=== PATIENT | male | born 1975 | race Caucasian/White ===

== ENCOUNTER 2018-12-29 21:17 | Inpatient (IN) | payer OTHER ==
--- NOTE | 2018-12-29 21:23 | PDOC ---
Rapid Medical Evaluation Time Seen by Provider: 12/29/18 21:20 Medical Evaluation: Allergies Allergy/AdvReac Type Severity Reaction Status Date / Time No Known Allergies Allergy Verified 01/04/14 17:49 12/29/18 21:20 Presents to the ER for 1 day of abdominal pain. He notes the pain is mostly in the RLQ. Has not taken any medicine for the pain Exam: TTP of the RLQ Orders: Labs, IV Pt to proceed to the ER for further evaluation Discharge Disposition - Diagnosis Abdominal pain - Referrals - Patient Instructions - Post Discharge Activity
[2018-12-29 22:04] LABS: BASO % 0.3 % (0-2.0); EOS % 2.3 % (0-4.5); HEMATOCRIT 44.4 % (35.4-49); HEMOGLOBIN 14.8 GM/dL (11.7-16.9); LYMPH % 19.5 % (8-40); MCH 28.5 pg (25.7-33.7); MCHC 33.3 g/dl (32.0-35.9); MEAN CELL VOLUME 85.5 fl (80-96); MONO % 6.7 % (3.8-10.2); NEUT % 71.2 % (42.8-82.8); PLATELET COUNT 186 K/MM3 (134-434); RBC 5.19 M/mm3 (4.00-5.60); WHITE BLOOD COUNT 7.1 K/mm3 (4.0-10.0)
[2018-12-29 22:08] LABS: URINE APPEARANCE CLEAR; URINE BILIRUBIN NEGATIVE (NEGATIVE); URINE COLOR YELLOW; URINE GLUCOSE (UA) NEGATIVE (NEGATIVE); URINE KETONE NEGATIVE (NEGATIVE); URINE LEUK ESTERASE NEGATIVE (NEGATIVE); URINE NITRITE NEGATIVE (NEGATIVE); URINE PROTEIN NEGATIVE (NEGATIVE); URINE UROBILINOGEN 0.2 mg/dL (0.2-1.0)
[2018-12-29 22:19] LABS: INR 1.02 (0.83-1.09)
[2018-12-29 22:31] LABS: ALBUMIN 4.4 g/dl (3.4-5.0); BILIRUBIN,TOTAL 0.3 mg/dL (0.2-1); BLOOD UREA NITROGEN 12.2 mg/dL (7-18); CALCIUM 9.3 mg/dL (8.5-10.1); CREATININE 1.2 mg/dL (0.55-1.3); POTASSIUM 4.2 mmol/L (3.5-5.1); TOT PROT 7.7 g/dl (6.4-8.2)
[2018-12-29] MEDS ORDERED: ACETAMINOPHEN 1000 MG/100 ML VIAL (NON FORMULARY) IVPB ONE (23:21)
--- NOTE | 2018-12-29 23:22 | PDOC ---
History of Present Illness - General Chief Complaint: Pain Stated Complaint: ABD PAIN Time Seen by Provider: 12/29/18 21:20 - History of Present Illness Initial Comments: 12/30/18 00:56 CHIEF COMPLAINT: RLQ pain HISTORY OF PRESENT ILLNESS: 43 yo M with no PMH presents to ED with pain with sudden onset RLQ since 6 pm. Patient states he was driving when the pain began. Patient denies any nausea, vomiting, diarrhea. PAST MEDICAL HISTORY: Denies past medical history FAMILY HISTORY: Denies SOCIAL HISTORY: Denies tobacco, alcohol, illicit drug use. SURGICAL HISTORY: Denies ALLERGIES: No known drug allergies REVIEW OF SYSTEMS General/Constitutional: Denies fever or chills. Denies weakness, weight change. HEENT: Denies change in vision. Denies ear pain or discharge. Denies sore throat. Cardiovascular: Denies chest pain or shortness of breath. Respiratory: Denies cough, wheezing, or hemoptysis. Gastrointestinal: RLQ tenderness since this evening. Denies nausea, vomiting, diarrhea or constipation. Denies rectal bleeding. Genitourinary: Denies dysuria, frequency, or change in urination. Musculoskeletal: Denies joint or muscle swelling or pain. Denies neck or back pain. Skin and breasts: Denies rash or easy bruising. Neurologic: Denies headache, vertigo, loss of consciousness, or loss of sensation. Psychiatric: Denies depression or anxiety. Endocrine: Denies increased thirst. Denies abnormal weight change. Hematologic/Lymphatic: Denies anemia, easy bleeding, or history of blood clots. Allergic/Immunologic: Denies hives or skin allergy. Denies latex allergy. PHYSICAL EXAM General Appearance: Well-appearing, appropriately dressed. No apparent distress , no intoxication. HEENT: EOMI, PERRLA, normal ENT inspection, normal voice, TMs normal, pharynx normal. No conjunctival pallor. No photophobia, scleral icterus. Neck: Supple. Trachea midline. No tenderness, rigidity, carotid bruit, stridor , lymphadenopathy, or thyromegaly. Respiratory/Chest: Lungs CTAB. No shortness of breath, chest tenderness, respiratory distress, accessory muscle use. No crackles, rales, rhonchi, stridor , wheezing, dullness Cardiovascular: RRR. S1, S2. No JVD, murmur, bradycardia, tachycardia. Vascular Pulses: Dorsalis-Pedis (R): 2+, Dorsalis-Pedis (L): 2+ Gastrointestinal/Abdominal: Marked tenderness to RLQ. Normal bowel sounds. Abdomen soft, non-distended. No tenderness or rebound tenderness. No organomegaly, pulsatile mass, guarding, hernia, hepatomegaly, splenomegaly. Lymphatic: No adenopathy, tenderness. Musculoskeletal/Extremities: Normal inspection. FROM of all extremities, normal capillary refill. Pelvis Stable. No CVA tenderness. No tenderness to extremities, pedal edema, swelling, erythema or deformity. Integumentary: Appropriate color, dry, warm. 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 Fully oriented, alert. Appropriate mood/affect. Motor strength 5/5. No appreciable EOM palsy, facial droop or sensory deficit. 12/30/18 00:57 12/30/18 01:38 Past History - Past Medical History Allergies/Adverse Reactions: Allergies Allergy/AdvReac Type Severity Reaction Status Date / Time No Known Allergies Allergy Verified 01/04/14 17:49 Home Medications: Ambulatory Orders NK [No Known Home Medication] 01/04/14 COPD: No - Suicide/Smoking/Psychosocial Hx Smoking History: Never smoked *Physical Exam - Vital Signs Last Vital Signs Temp Pulse Resp BP Pulse Ox 99.2 F 76 18 113/83 99 12/29/18 21:21 12/29/18 21:21 12/29/18 21:21 12/29/18 21:21 12/29/18 21:21 ED Treatment Course - LABORATORY CBC & Chemistry Diagram: 12/29/18 21:48 12/29/18 21:48 - ADDITIONAL ORDERS Additional order review: Laboratory Results 12/29/18 12/29/18 12/29/18 21:48 21:48 21:48 PT with INR 12.00 INR 1.02 Sodium 139 Potassium 4.2 Chloride 103 Carbon Dioxide 32 Anion Gap 4 L BUN 12.2 Creatinine 1.2 Est GFR (CKD-EPI)AfAm 86.53 Est GFR (CKD-EPI)NonAf 74.66 Random Glucose 97 Calcium 9.3 Total Bilirubin 0.3 AST 21 ALT 26 Alkaline Phosphatase 65 Total Protein 7.7 Albumin 4.4 Urine Color Yellow Urine Appearance Clear Urine pH 5.0 Ur Specific [place] 1.014 Urine Protein Negative Urine Glucose (UA) Negative Urine Ketones Negative Urine Blood Negative Urine Nitrite Negative Urine Bilirubin Negative Urine Urobilinogen 0.2 Ur Leukocyte Esterase Negative 12/29/18 21:48 RBC 5.19 MCV 85.5 MCHC 33.3 RDW 13.0 MPV 9.0 Neutrophils % 71.2 Lymphocytes % 19.5 Monocytes % 6.7 Eosinophils % 2.3 Basophils % 0.3 Medical Decision Making - Medical Decision Making 12/30/18 01:22 43 yo M presents to ED with pain with sudden onset RLQ since 6 pm -labs done in triage, unremarkable Patient with marked RLQ tenderness with warmth to abdomen, suspicious for appy. CTAP with contrast. Patient +for acute appy. 12/30/18 01:38 Discussed case with on-call surgeon MD Sotelo, will admit to hospitalist for surgical services tomorrow per Dr. Sotelo. *DC/Admit/Observation/Transfer Diagnosis at time of Disposition: Appendicitis with perforation - Discharge Dispostion Decision to Admit order: Yes - Referrals - Patient Instructions - Post Discharge Activity
[2018-12-30] MEDS ORDERED: ACETAMINOPHEN INJECTION 100 ML IVPB ONE (01:08)
[2018-12-30] MEDS ORDERED: PIPERACILLIN/TAZOB 3.375 GM 3.375 GM in DEXTROSE 5%-WATER - 50 ML IVPB ONE ×2 (01:23→09:00)
--- NOTE | 2018-12-30 02:24 | PN ---
Teaching Attending Note Name of Resident: Flavio Baeza ATTENDING PHYSICIAN STATEMENT I saw and evaluated the patient. I reviewed the resident's note and discussed the case with the resident. I agree with the resident's findings and plan as documented. SUBJECTIVE: 43 yo M with bronchiectasis, pulm nodules presents with sudden onset RLQ since 6 pm. Patient states he was driving when the pain began. Patient denies any nausea, vomiting, diarrhea, or fevers. OBJECTIVE: Last Vital Signs Temp Pulse Resp BP Pulse Ox 99.2 F 76 18 113/83 99 12/29/18 21:21 12/29/18 21:21 12/29/18 21:21 12/29/18 21:21 12/29/18 21:21 gen-nad, heent- at, nc neck supple cv-s1+s2+rrr chest clear abd-RLQ pain ext no pedal edema Abnormal Lab Results 12/29/18 21:48 Anion Gap [address] abd/pelvis [facility] report -acute appendicitis, periappendiceal infection suspicious for perforation, constipation, diverticulosis, right lower lobe bronchectasis, right lower lobe irregular 8mm lung nodule, right lower lobe 4mm nodule, left lower lobe 5mm nodule ASSESSMENT AND PLAN: #acute appendicitis -med/surg -ekg -type/screen -pt/ptt -surgery consult -pain control - iv morphine -npo #Chest CT abnormalities - nodules as described above, bronchiectasis. No Hx of smoking, TB, fungal exposure. From DR og. -would f/u official CT scan reports -quantiferon -histo urine ag -crypo serum ag -coccidiodes ag -pulm eval for possible bronchoscopy -chest CT w/ contrast for complete lung eval
--- NOTE | 2018-12-30 02:42 | HP ---
CHIEF COMPLAINT: RLQ pain HISTORY OF PRESENT ILLNESS: William Blankenship is a 43 year old male with no past medical history who presents with a several hour history of abdominal pain. The patient was in his usual state of health until this afternoon when he began to feel epigastric pain that migrated down to his RLQ. Pain did not remit when he arrived home and he went to the ED for further evaluation. He denies feelings of nausea, vomiting, diarrhea, bloody bowel movements, pain with movement, fever, chills, chest pain , shortness of breath, syncope, falls, cough, numbness, tingling. Denies sick contacts, trauma, recent travel. ER course was notable for: (1) Abd Ct showing signs of periappendiceal inflammation suggestive of appendicitis and suspicious for perforation. Additionally noted multiple lung nodules. 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 Allergies No Known Allergies Allergy (Verified 01/04/14 17:49) HOME MEDICATIONS: Home Medications Medication Instructions Recorded NK [No Known Home Medication] 01/04/14 REVIEW OF SYSTEMS CONSTITUTIONAL: Absent: fever, chills, diaphoresis, generalized weakness, malaise, loss of appetite, weight change HEENT: Absent: rhinorrhea, nasal congestion, throat pain, throat swelling, difficulty swallowing CARDIOVASCULAR: Absent: chest pain, syncope, palpitations, irregular heart rate, lightheadedness , peripheral edema RESPIRATORY: Absent: cough, shortness of breath, dyspnea with exertion, orthopnea, wheezing, GASTROINTESTINAL: abdominal pain Absent: abdominal distension, nausea, vomiting, diarrhea, constipation, melena, hematochezia GENITOURINARY: Absent: dysuria, frequency, urgency, hesitancy, hematuria, flank pain MUSCULOSKELETAL: Absent: myalgia, arthralgia, joint swelling, back pain, neck pain SKIN: Absent: rash, itching, pallor HEMATOLOGIC/IMMUNOLOGIC: Absent: easy bleeding, easy bruising, lymphadenopathy, frequent infections ENDOCRINE: Absent: unexplained weight gain, unexplained weight loss, heat intolerance, cold intolerance NEUROLOGIC: Absent: headache, focal weakness or paresthesias, dizziness, unsteady gait, seizure, mental status changes, PSYCHIATRIC: Absent: anxiety, depression, suicidal or homicidal ideation, hallucinations. PHYSICAL EXAMINATION Vital Signs - 24 hr 12/29/18 21:21 Temperature 99.2 F Pulse Rate 76 Respiratory 18 Rate Blood Pressure 113/83 O2 Sat by Pulse 99 Oximetry (%) GENERAL: Awake, alert, and fully oriented, in no acute distress. HEAD: Normal with no signs of trauma. EYES: Pupils equal, round and reactive to light, extraocular movements intact, sclera anicteric, conjunctiva clear. EARS, NOSE, THROAT: Oropharynx clear without exudates. Moist mucous membranes. NECK: Normal range of motion, supple without lymphadenopathy, JVD. LUNGS: Breath sounds equal, clear to auscultation bilaterally. No wheezes, and no crackles. No accessory muscle use. HEART: Regular rate and rhythm, normal S1 and S2 without murmur, rub or gallop. ABDOMEN: Soft, tender in the RLQ (McBurney's point) with pain when pressing in LLQ, not distended, normoactive bowel sounds, no guarding, no rebound, no masses. MUSCULOSKELETAL: Normal range of motion at all joints. No bony deformities or tenderness. UPPER EXTREMITIES: 2+ pulses, warm, well-perfused. No cyanosis. No clubbing. No peripheral edema. LOWER EXTREMITIES: 2+ pulses, warm, well-perfused. No calf tenderness. No peripheral edema. NEUROLOGICAL: Cranial nerves II-XII intact. 5/5 muscle strength bilaterally in the upper and lower extremities. PSYCHIATRIC: Cooperative. Good eye contact. Appropriate mood and affect. SKIN: Warm, dry, normal turgor, no rashes or lesions noted, normal capillary refill. Laboratory Results - last 24 hr 12/29/18 12/29/18 12/29/18 21:48 21:48 21:48 WBC 7.1 RBC 5.19 Hgb 14.8 Hct 44.4 MCV 85.5 MCH 28.5 MCHC 33.3 RDW 13.0 Plt Count 186 MPV 9.0 Absolute Neuts (auto) 5.1 Neutrophils % 71.2 Lymphocytes % 19.5 Monocytes % 6.7 Eosinophils % 2.3 Basophils % 0.3 Nucleated RBC % 0 PT with INR 12.00 INR 1.02 Sodium 139 Potassium 4.2 Chloride 103 Carbon Dioxide 32 Anion Gap 4 L BUN 12.2 Creatinine 1.2 Est GFR (CKD-EPI)AfAm 86.53 Est GFR (CKD-EPI)NonAf 74.66 Random Glucose 97 Calcium 9.3 Total Bilirubin 0.3 AST 21 ALT 26 Alkaline Phosphatase 65 Total Protein 7.7 Albumin 4.4 Urine Color Urine Appearance Urine pH Ur Specific [place] Urine Protein Urine Glucose (UA) Urine Ketones Urine Blood Urine Nitrite Urine Bilirubin Urine Urobilinogen Ur Leukocyte Esterase 12/29/18 21:48 WBC RBC Hgb Hct MCV MCH MCHC RDW Plt Count MPV Absolute Neuts (auto) Neutrophils % Lymphocytes % Monocytes % Eosinophils % Basophils % Nucleated RBC % PT with INR INR Sodium Potassium Chloride Carbon Dioxide Anion Gap BUN Creatinine Est GFR (CKD-EPI)AfAm Est GFR (CKD-EPI)NonAf Random Glucose Calcium Total Bilirubin AST ALT Alkaline Phosphatase Total Protein Albumin Urine Color Yellow Urine Appearance Clear Urine pH 5.0 Ur Specific [place] 1.014 Urine Protein Negative Urine Glucose (UA) Negative Urine Ketones Negative Urine Blood Negative Urine Nitrite Negative Urine Bilirubin Negative Urine Urobilinogen 0.2 Ur Leukocyte Esterase Negative ASSESSMENT/PLAN: William Blankenship is a 43 year old male with no past medical history admitted for appendicitis. Appendicitis Pulmonary Nodules Appendicitis - CT results as above - Dr. Sotelo consulted, will prepare for surgery in the morning - NPO - IVF - pre-op labs and type and screen Pulmonary Nodules - unclear origin, no family history, no hx of smoking or exposures - pulmonary consulted - quantiferon test - histoplasma in urine - cryptococcal serum antigen - chest CT with contrast FEN - NS at 83 cc/hr - continue to monitor electrolytes and replete as necessary - NPO pending surgery Prophylaxis - SCD's, no chemical prophylaxis in setting of pending surgery Code - full code SHAYNA MENDOSA DO - PGY-1 Family Medical History Family History: Denies, Unremarkable Visit type - Emergency Visit Emergency Visit: Yes ED Registration Date: 12/30/18 Care time: The patient presented to the Emergency Department on the above date and was hospitalized for further evaluation of their emergent condition. - New Patient This patient is new to me today: Yes Date on this admission: 12/30/18 - Critical Care Critical Care patient: No
[2018-12-30] MEDS: SODIUM CHLORIDE 1,000 ML IV SCH ×2 (03:41→16:29)
[2018-12-30] MEDS ORDERED: ACETAMINOPHEN 1000 MG/100 ML VIAL (NON FORMULARY) IVPB PRN (04:41)
[2018-12-30 04:46] VITALS: BMI 26.1
[2018-12-30 07:57] LABS: BASO % 0.2 % (0-2.0); EOS % 1.8 % (0-4.5); HEMATOCRIT 41.8 % (35.4-49); HEMOGLOBIN 14.1 GM/dL (11.7-16.9); LYMPH % 18.7 % (8-40); MCH 28.7 pg (25.7-33.7); MCHC 33.7 g/dl (32.0-35.9); MEAN CELL VOLUME 85.2 fl (80-96); MEAN PLT VOLUME 8.6 fl (7.5-11.1); MONO % 9.8 % (3.8-10.2); NEUT % 69.5 % (42.8-82.8); PLATELET COUNT 178 K/MM3 (134-434); RDW 12.7 % (11.9-15.9); WHITE BLOOD COUNT 7.1 K/mm3 (4.0-10.0)
[2018-12-30 08:23] LABS: INR 1.05 (0.83-1.09); PROTHROMBIN TIME (PATIENT) 12.4 SEC (9.7-13.0)
[2018-12-30 08:25] LABS: BILIRUBIN,TOTAL 0.5 mg/dL (0.2-1); CALCIUM 9.1 mg/dL (8.5-10.1); CREATININE 1.1 mg/dL (0.55-1.3); MAGNESIUM 2.4 mg/dL (1.8-2.4)
[2018-12-30 08:26] LABS: ACTIVATED PTT 33.6 SECONDS (25.2-36.5)
[2018-12-30] MEDS ORDERED: PIPERACILLIN/TAZOBACTAM 3.375 GM VIAL IVPB ONE ×2 (09:05→17:29)
[2018-12-30] MEDS ORDERED: DEXTROSE 5%-WATER - 50 ML IVPB ONE ×2 (09:06→17:30)
--- NOTE | 2018-12-30 09:08 | CONSULT ---
- Consultation REQUESTING PROVIDER: Mary Lou Zambrano CONSULT REQUEST: We have been asked to surgically evaluate this patient for ( specify). PCP:Kiran Vasquez NP HISTORY OF PRESENT ILLNESS: CTSP who is a 43 y/o male who presented yesterday w/ generalized to RLQ abdominal pain which started suddenly at ~ 6PM 12/29/18; he had some associated nausea w/o vomitibg; pain worse w/movement and better when lying still; no other GI/ c/o. He denies trauma and never had this before. PMHx: none PSHx: none Home Medications Medication Instructions Recorded NK [No Known Home Medication] 01/04/14 Allergies Allergy/AdvReac Type Severity Reaction Status Date / Time No Known Allergies Allergy Verified 01/04/14 17:49 REVIEW OF SYSTEMS: CONSTITUTIONAL: Absent: fever, chills, diaphoresis, generalized weakness, malaise, loss of appetite, weight change CARDIOVASCULAR: Absent: chest pain, syncope, palpitations, irregular heart rate, lightheadedness , peripheral edema RESPIRATORY: Absent: cough, shortness of breath, dyspnea with exertion, wheezing, stridor, hemoptysis GASTROINTESTINAL: Absent: abdominal pain, abdominal distension, nausea, vomiting, diarrhea, constipation, melena, hematochezia GENITOURINARY: Absent: dysuria, frequency, urgency, hesitancy, hematuria, flank pain, genital pain MUSCULOSKELETAL: Absent: myalgia, arthralgia, joint swelling, back pain, neck pain SKIN: Absent: rash, itching, pallor HEMATOLOGIC/IMMUNOLOGIC: Absent: easy bleeding, easy bruising, lymphadenopathy NEUROLOGIC: Absent: headache, focal weakness, paresthesias, dizziness, unsteady gait, seizure, mental status changes, bladder or bowel incontinence PSYCHIATRIC: Absent: anxiety, depression, suicidal or homicidal ideation, hallucinations. PHYSICAL EXAM: GENERAL: Awake, alert, and fully oriented, in no acute distress. HEAD: Normal with no signs of trauma. EYES: sclera anicteric, conjunctiva clear. NECK: Normal ROM, supple without lymphadenopathy, JVD, or masses. LUNGS: Clear to auscultation bilat anteriorly. No wheezes, and no crackles. No accessory muscle use. HEART: Regular rate and rhythm. No murmurs ABDOMEN: Soft, tender RLQ to palpation, not distended, normoactive bowel sounds , involuntary guarding, mnimal rebound, no masses. No organomegaly. No hernias ; Rovsings/psoas and obturator signs are present. MUSCULOSKELETAL: Normal ROM at all joints. No bony deformities or tenderness. No CVA tenderness. UPPER EXTREMITIES: 2+ pulses, warm, well-perfused. No cyanosis. Cap refill <2 seconds. No peripheral edema. LOWER EXTREMITIES: 2+ pulses, warm, well-perfused. No calf tenderness. No peripheral edema. NEUROLOGICAL: Normal speech, gait not observed. PSYCH: Cooperative. Good eye contact. Appropriate mood and affect. SKIN: Warm, dry, normal turgor, no rashes or lesions noted. Vital Signs Temperature 98.2 F 12/30/18 04:49 Pulse Rate 69 12/30/18 04:49 Respiratory Rate 20 12/30/18 04:49 Blood Pressure 115/60 12/30/18 04:49 O2 Sat by Pulse Oximetry (%) 98 12/30/18 04:20 Lab Results WBC 7.1 K/mm3 (4.0-10.0) 12/30/18 07:30 RBC 4.90 M/mm3 (4.00-5.60) 12/30/18 07:30 Hgb 14.1 GM/dL (11.7-16.9) 12/30/18 07:30 Hct 41.8 % (35.4-49) 12/30/18 07:30 MCV 85.2 fl (80-96) 12/30/18 07:30 MCHC 33.7 g/dl (32.0-35.9) 12/30/18 07:30 RDW 12.7 % (11.9-15.9) 12/30/18 07:30 Plt Count 178 K/MM3 (134-434) 12/30/18 07:30 Sodium 138 mmol/L (136-145) 12/30/18 07:30 Potassium 4.0 mmol/L (3.5-5.1) 12/30/18 07:30 Chloride 103 mmol/L (98-107) 12/30/18 07:30 Carbon Dioxide 30 mmol/L (21-32) 12/30/18 07:30 Anion Gap 5 MMOL/L (8-16) L 12/30/18 07:30 BUN 10.0 mg/dL (7-18) 12/30/18 07:30 Creatinine 1.1 mg/dL (0.55-1.3) 12/30/18 07:30 Random Glucose 108 mg/dL (74-106) H 12/30/18 07:30 Calcium 9.1 mg/dL (8.5-10.1) 12/30/18 07:30 Blood Type AB POSITIVE 12/30/18 07:30 Antibody Screen Negative 12/30/18 03:39 INR 1.05 (0.83-1.09) 12/30/18 07:30 CT scan a/p reviewed; images and report IMP: acute appendicitis PLAN:Laparoscopic possible open appendectomy; r/b/t/a's d/w the patient who will give informed consent. Dwayne Sotelo MD FACS
[2018-12-30] MEDS ORDERED: BUPIVACAINE HCL/PF 0.5% (5 MG/ML) 30 ML VIAL IJ ONE ×3 (11:49→13:25)
--- NOTE | 2018-12-30 12:16 | CON.ID ---
Consult Consult Specialty:: infectious diseases Referred by:: Oriana Reason for Consultation:: ac appendicits,abd pain - History of Present Illness Chief Complaint: abd pain History of Present Illness: 43 year old male with no past medical history who presents with a several hour history of abdominal pain. The patient was in his usual state of health until this afternoon when he began to feel epigastric pain that migrated down to his RLQ. patient had not other symptoms.came to the hospital was worked up and found to have ac appendicits. Seen by surgery taking him to the operating room - History Source History Provided By: Patient, Medical Record Limitations to Obtaining History: No Limitations - Alcohol/Substance Use Hx Alcohol Use: No - Smoking History Smoking history: Never smoked Home Medications - Allergies Allergies/Adverse Reactions: Allergies Allergy/AdvReac Type Severity Reaction Status Date / Time No Known Allergies Allergy Verified 01/04/14 17:49 - Home Medications Home Medications: Ambulatory Orders Tramadol HCl 50 mg PO Q6H PRN #30 tablet MDD 4 12/30/18 Review of Systems - Review of Systems Constitutional: reports: No Symptoms Eyes: reports: No Symptoms HENT: reports: No Symptoms Neck: reports: No Symptoms Cardiovascular: reports: No Symptoms Respiratory: reports: No Symptoms Gastrointestinal: reports: Abdominal Pain Genitourinary: reports: No Symptoms Musculoskeletal: reports: No Symptoms Integumentary: reports: No Symptoms Neurological: reports: No Symptoms Endocrine: reports: No Symptoms Hematology/Lymphatic: reports: No Symptoms Psychiatric: reports: No Symptoms Physical Exam Vital Signs: Vital Signs Temperature 98.1 F 12/30/18 09:16 Pulse Rate 69 12/30/18 09:16 Respiratory Rate 20 12/30/18 09:16 Blood Pressure 121/59 L 12/30/18 09:16 O2 Sat by Pulse Oximetry (%) 98 12/30/18 04:20 Constitutional: Yes: Well Nourished, Calm, Mild Distress HENT: Yes: Atraumatic, Normocephalic Cardiovascular: Yes: Regular Rate and Rhythm Respiratory: Yes: Regular, CTA Bilaterally Gastrointestinal: Yes: Soft, Tenderness (rlq) Musculoskeletal: Yes: WNL Extremities: Yes: WNL Neurological: Yes: Alert, Oriented Psychiatric: Yes: Alert, Oriented Labs: CBC, BMP 12/30/18 07:30 12/30/18 07:30 Imaging - Results Cat Scan: Report Reviewed, Image Reviewed Assessment/Plan William Blankenship is a 43 year old male with no past medical history admitted for appendicitis. appendicits pul nodules plan will continue zosyn await for final results
[2018-12-30] MEDS ORDERED: MIDAZOLAM HCL 2 MG/2 ML SINGLE DOSE VIAL ONE (12:18)
[2018-12-30] MEDS ORDERED: SUCCINYLCHOLINE CHLORIDE 200 MG/10 ML SYRINGE ONE (12:20)
[2018-12-30] MEDS ORDERED: DEXAMETHASONE SOD PHOSPHATE 4 MG/1 ML VIAL ONE (12:54)
[2018-12-30] MEDS ORDERED: EPHEDRINE SULFATE/0.9% NACL/PF 50 MG/10 ML SYRINGE NR ONE (13:06)
[2018-12-30] MEDS ORDERED: PROPOFOL 20 ML ONE (13:25)
[2018-12-30] MEDS ORDERED: NEOSTIGMINE METHYLSULFATE 0.5 MG/ML - 10 ML MDV ONE (13:27)
[2018-12-30] MEDS ORDERED: GLYCOPYRROLATE 0.2 MG/1 ML VIAL ONE (13:27)
--- NOTE | 2018-12-30 13:58 | OP ---
Operative Note - Note: Operative Date: 12/30/18 Pre-Operative Diagnosis: Acute appendicitis Operation: Laprascopic appendectomy Post-Operative Diagnosis: Same as Pre-op Surgeon: Dwayne Sotelo Doll Wigs Hackler: Adam Gomez Anesthesiologist/RIPENING ROOM HAND: Eleazar Gan Anesthesia: General Specimens Removed: appendix Estimated Blood Loss (mls): 10 Drains, Volume Out (mls): 400 ([place] / clear) Fluid Volume Replaced (mls): 700 (LR) Operative Report Dictated: Yes
--- NOTE | 2018-12-30 13:58 | SURG ---
Surgery Operations Supervisor Note Operations Supervisor: Adam Gomez PA-C Date of Service: 12/30/18 Diagnosis: Acute appendicitis Procedure: Laprascopic appendectomy I was present for the entirety of the operative procedure. For further detail, please refer to operative report. Visit type - Case Type Case Type: ED Admission - Emergency Emergency Visit: Yes ED Registration Date: 12/30/18 Care time: The patient presented to the Emergency Department on the above date and was hospitalized for further evaluation of their emergent condition. - New patient This patient is new to me today: Yes Date on this admission: 12/30/18
--- NOTE | 2018-12-30 14:09 | OP ---
Operative Note - Note: Operative Date: 12/30/18 Pre-Operative Diagnosis: acute appendicitis Operation: laparoscopic appendectomy Findings: acute suppurative appendicitis Post-Operative Diagnosis: Same as Pre-op Surgeon: Dwayne Sotelo Brazer Electronic: Adam Gomez Anesthesiologist/PUBLIC ADDRESS SYSTEM MECHANIC: Xavi Bailey Anesthesia: General Specimens Removed: appendix Estimated Blood Loss (mls): 10
[2018-12-30] MEDS: PIPERACILLIN/TAZOB 3.375 GM 3.375 GM in DEXTROSE 5%-WATER - 50 ML IVPB SCH (17:38)
[2018-12-30] MEDS: KETOROLAC TROMETHAMINE 30 MG/1 ML VIAL IVPUSH SCH (17:46)
[2018-12-31] MEDS ORDERED: PIPERACILLIN/TAZOBACTAM 3.375 GM VIAL IVPB ONE ×2 (00:28→10:14)
[2018-12-31] MEDS ORDERED: DEXTROSE 5%-WATER - 50 ML IVPB ONE ×2 (00:28→10:14)
[2018-12-31] MEDS: PIPERACILLIN/TAZOB 3.375 GM 3.375 GM in DEXTROSE 5%-WATER - 50 ML IVPB SCH ×2 (01:20→10:28)
[2018-12-31] MEDS: KETOROLAC TROMETHAMINE 30 MG/1 ML VIAL IVPUSH SCH ×2 (02:43→10:29)
[2018-12-31] MEDS: SODIUM CHLORIDE 1,000 ML IV SCH (08:19)
--- NOTE | 2018-12-31 11:14 | PN ---
Progress Note, Physician History of Present Illness: stable no complaints minimal post op pain - Current Medication List Current Medications: Active Medications Acetaminophen (Ofirmev Injection -) 1,000 mg IVPB Q6H PRN PRN Reason: PAIN LEVEL 6-10 Sodium Chloride (Normal Saline -) 1,000 mls @ 83 mls/hr IV ASDIR JADYN Last Admin: 12/31/18 08:19 Dose: 83 mls/hr Piperacillin Sod/Tazobactam (Sod 3.375 gm/ Dextrose) 50 mls @ 100 mls/hr IVPB Q8H-IV JADYN; Protocol Last Admin: 12/31/18 10:28 Dose: 100 mls/hr Ketorolac Tromethamine (Toradol Injection -) 30 mg IVPUSH Q8H-IV JADYN Stop: 01/04/19 17:59 Last Admin: 12/31/18 10:29 Dose: 30 mg - Objective Vital Signs: Vital Signs Temperature 97.5 F L 12/31/18 06:00 Pulse Rate 76 12/31/18 06:00 Respiratory Rate 18 12/31/18 06:00 Blood Pressure 125/53 L 12/31/18 06:00 O2 Sat by Pulse Oximetry (%) 98 12/30/18 21:00 Constitutional: Yes: No Distress, Calm Cardiovascular: Yes: S1, S2 Respiratory: Yes: Regular, CTA Bilaterally Gastrointestinal: Yes: Normal Bowel Sounds, Soft Musculoskeletal: Yes: WNL Extremities: Yes: Other Wound/Incision: Yes: Dressing Dry and Intact Neurological: Yes: Alert, Oriented Psychiatric: Yes: Alert, Oriented Labs: CBC, BMP 12/30/18 07:30 12/30/18 07:30 INR, PTT INR 1.05 (0.83-1.09) 12/30/18 07:30 Assessment/Plan William Blankenship is a 43 year old male with no past medical history admitted for appendicitis. appendicits pul nodules plan continue abx await for ct chest result await for other results rest as per the team
--- NOTE | 2018-12-31 12:09 | PN ---
Progress Note (short form) - Note Progress Note: PULMONARY CONSULTATION DICTATED 12/31/18 IMP ABD PAIN S/P LAPROSCOPIC APPENDECTOMY BILATERAL PULMONARY NODULES BIBASILAR ATELECTASIS PLAN LOW DOSE CHEST CT 6 MONTHS INCENTIVE SPIROMETER D/C PER SURGERY DR RATLIFF Problem List - Problems (1) Lung nodules Code(s): R91.8 - OTHER NONSPECIFIC ABNORMAL FINDING OF LUNG FIELD (2) Appendicitis with perforation Code(s): K35.32 - ACUTE APPENDICITIS WITH PERF AND LOC PERITONITIS, W/O ABSCS
--- NOTE | 2018-12-31 12:10 | PN ---
Physical Exam: SUBJECTIVE: Patient seen and examined OBJECTIVE: Vital Signs Period Temp Pulse Resp BP Sys/Ryan Pulse Ox Last 24 Hr 97.5 F-99.2 F 58-85 10-18 103-130/47-78 98-100 GENERAL: The patient is awake, alert, and fully oriented, in no acute distress. HEAD: Normal with no signs of trauma. EYES: PERRL, extraocular movements intact, sclera anicteric, conjunctiva clear. No ptosis. ENT: Ears normal, nares patent, oropharynx clear without exudates, moist mucous membranes. NECK: Trachea midline, full range of motion, supple. LUNGS: Breath sounds equal, clear to auscultation bilaterally, no wheezes, no crackles, no accessory muscle use. HEART: Regular rate and rhythm, S1, S2 without murmur, rub or gallop. ABDOMEN: Soft, nontender, nondistended, normoactive bowel sounds, no guarding, no rebound, no hepatosplenomegaly, no masses. EXTREMITIES: 2+ pulses, warm, well-perfused, no edema. NEUROLOGICAL: Cranial nerves II through XII grossly intact. Normal speech, gait not observed. PSYCH: Normal mood, normal affect. SKIN: Warm, dry, normal turgor, no rashes or lesions noted Active Medications Generic Name Dose Route Start Last Admin Trade Name Jeanq PRN Reason Stop Dose Admin Acetaminophen 1,000 mg 12/30/18 04:41 Ofirmev Injection - IVPB Q6H PRN PAIN LEVEL 6-10 Sodium Chloride 1,000 mls @ 83 mls/hr 12/30/18 03:00 12/31/18 08:19 Normal Saline - IV 83 mls/hr ASDIR JADYN Administration Piperacillin Sod/Tazobactam 50 mls @ 100 mls/hr 12/30/18 18:00 12/31/18 10:28 Sod 3.375 gm/ Dextrose IVPB 100 mls/hr Q8H-IV JADYN Administration Protocol Ketorolac Tromethamine 30 mg 12/30/18 18:00 12/31/18 10:29 Toradol Injection - IVPUSH 01/04/19 17:59 30 mg Q8H-IV JADYN Administration ASSESSMENT/PLAN:
--- NOTE | 2018-12-31 12:14 | PN ---
Progress Note (short form) - Note Progress Note: Anesthesiologist post op note, POD#1, S/P laparoscopic appendectomy under GA. VSS. No apparent post anesthesia complications.
--- NOTE | 2018-12-31 13:05 | PN ---
Progress Note (short form) - Note Progress Note: Attending Surgeon POD#1 No c/o; voided and tolerated a diet VSS AF abdo-soft; flat and non tender; port sites c/d/i; o/w negative. IMP: doing well PLAN: Advance diet and discharge to office f/u next week. Dwayne Sotelo MD FACS
--- NOTE | 2018-12-31 13:16 | DS ---
Physical Exam: SUBJECTIVE: Patient seen and examined at the bedside. denies abdominal pain, tolerating meals without nausea of vomiting. wants to go home and follow up outpatient. OBJECTIVE: chest ct does not show pulmonary nodules. seen by pulmonary. Patient to follow up with Dr. Blake as an outpatient. Vital Signs Period Temp Pulse Resp BP Sys/Ryan Pulse Ox Last 24 Hr 97.5 F-99.2 F 58-85 10-18 103-130/47-78 98-100 PHYSICAL EXAM GENERAL: The patient is awake, alert, and fully oriented, in no acute distress. HEAD: Normal with no signs of trauma. EYES: PERRL, extraocular movements intact, sclera anicteric, conjunctiva clear. ENT: Ears normal, nares patent, oropharynx clear without exudates, moist mucous membranes. NECK: Trachea midline, full range of motion, supple. LUNGS: Breath sounds equal, clear to auscultation bilaterally, no wheezes, no crackles, no accessory muscle use. HEART: Regular rate and rhythm, S1, S2 without murmur, rub or gallop. ABDOMEN: surgical dressings c/d/i. abdomen soft, non tender and non distended. EXTREMITIES: 2+ pulses, warm, well-perfused, no edema. NEUROLOGICAL: Cranial nerves II through XII grossly intact. Normal speech, gait not observed. PSYCH: Normal mood, normal affect. SKIN: Warm, dry, normal turgor, no rashes or lesions noted. LABS HOSPITAL COURSE: Date of Admission:12/30/18 Date of Discharge: 12/31/18 Minutes to complete discharge: 45 Discharge Summary Reason For Visit: LUNG MODULE, ACUTE APPENDICITIS Current Active Problems Appendicitis with perforation (Acute) Condition: Stable - Instructions Diet, Activity, Other Instructions: Dr. Sotelo Discharge Instructions Dear LACIE WEBB, Post Operative Instructions Physical activity Resume your normal everyday activity as tolerated no heavy lifting or exercise until seen by your surgeon. You may walk unlimited amounts of and climb stairs. You may resume driving the car when you feel safe and comfortable behind the wheel. Wound care If you have a bandage, leave it on, and keep dry for 48 - 72 hours. After that time discard the outer bandage. If there are tapes on the skin under the outer bandage, leave them in place. They will peel off in the next 7 to 10 days. Do Not peel them off. You may shower 2 days after surgery. If there are tapes present on the skin, they can get wet. Diet There are no dietary restrictions. Eat healthy, high-fiber foods. Drink 6 to 8 glasses of liquid each day. This will assist in keeping your bowels are regular. Pain management You may take Tylenol or acetaminophen or Ibuprofen (for example, Motrin, Advil etc.) Any pain prescription medication ordered should be taken as prescribed for moderate to severe pain. Call Dr. Sotelo for any of the following: Severe pain not relieved by medication Fever of 101 or higher Excessive bleeding or drainage on dressing Inability to urinate Call the office at [phone] for a post operative appointment in 7 - 10 days. Please follow up with Dr. Blake (rim fire priming tool setter). Please call his office and make an appointment. Referrals: Dwayne Sotelo MD [Staff Physician] - David Blake MD [Staff Physician] - Disposition: HOME - Home Medications Comprehensive Discharge Medication List: Ambulatory Orders Tramadol HCl 50 mg PO Q6H PRN #30 tablet MDD 4 12/30/18 Problem List - Problems (1) Appendicitis with perforation Assessment/Plan: cleared by surgery for discharge with outpatient followup s/p appendectomy on 12/30/[address] Sotelo. Code(s): K35.32 - ACUTE APPENDICITIS WITH PERF AND LOC PERITONITIS, W/O ABSCS (2) Lung nodules Assessment/Plan: lung nodule seen on abd/ct pelvis as an incidental finding, not seen on CT chest Seen by pulmonary, outpatient follow up recommended. Code(s): R91.8 - OTHER NONSPECIFIC ABNORMAL FINDING OF LUNG FIELD This patient is new to me today: Yes Date on this admission: 12/31/18 Emergency Visit: Yes ED Registration Date: 12/30/18 Care time: The patient presented to the Emergency Department on the above date and was hospitalized for further evaluation of their emergent condition. Critical Care patient: No - Discharge Referral Referred to [facility] Med P.C.: No
--- NOTE | 2018-12-31 13:25 | OP ---
DATE OF OPERATION: 12/30/2018 PREOPERATIVE DIAGNOSIS: Acute appendicitis. POSTOPERATIVE DIAGNOSIS: Acute appendicitis. PROCEDURE: Laparoscopic appendectomy. SURGEON: Dwayne Sotelo MD CUSTOMER EXPERIENCE INTERN: Adam Gomez PA-C ANESTHESIA: General. OPERATIVE FINDINGS: Acute suppurative appendicitis. The rest of the findings are unremarkable. PROCEDURE: The patient was placed on the operating room table in the supine position and after the induction of general anesthesia and placement of a Zamora catheter , the patient's abdomen was prepped with ChloraPrep and draped in sterile fashion. A timeout was taken and pneumoperitoneum established above the umbilicus using a Veress needle to an intraabdominal pressure of 15 mmHg. Subsequent to this, a 5 mm port was placed at the umbilicus, as well as a suprapubic 12 mm port and a left lower quadrant 5 mm port. Laparoscopy was carried out and the previously noted findings were observed. The appendix was grasped and then the mesoappendix serially divided using the LigaSure device down to the base of the appendix, which was identified by the convergence of the 3 tenia at the cecum. Once completely free, a 45 mm purple load Endo NEHEMIAH stapling device was fired across the base of the appendix. The appendix was then placed in an Endo Catch and brought up to the abdominal wall through the suprapubic port. Hemostasis was checked for and noted to be good and then the appendix removed and sent for pathological examination. Hemostasis was again verified and then all ports were removed under laparoscopic vision without evidence of bleeding from the port sites and the pneumoperitoneum was relieved. All port sites were infiltrated with 0.5% Marcaine and the defect at the suprapubic port site was closed with a 0 Vicryl figure-of-8 suture. The skin incisions were closed with 4-0 Monocryl in the subcuticular fashion, followed by Steri-Strips and band-Aid dressings and the procedure was terminated at this point and the Zamora catheter removed and the patient aroused from general anesthesia and transferred to the post anesthesia care unit in stable condition awake and alert. ESTIMATED BLOOD LOSS: 10 mL REPLACEMENTS: Crystalloid. DRAINS: None. SPECIMEN: Appendix to Pathology. I, Dwayne Sotelo, was physically present in the operating room from the time the patient was placed on the operating room table until he was transferred to the post anesthesia care unit in [employer]. MD CLARISA Nielsen/[id number] MTDD
--- NOTE | 2018-12-31 13:57 | CONS ---
DATE OF CONSULTATION: 12/31/2018 REFERRING PHYSICIAN: JERRICA Rodriguez HISTORY OF PRESENT ILLNESS: Patient is a 43-year-old male without any significant past medical history admitted to [facility] with the complaint of one-day history of abdominal pain. Patient believes that the pain was located in the right lower quadrant. Patient underwent a CT scan of the abdomen on December 30, 2018, which revealed appendex dilated measuring 14 mm. The wall was thickened and hyperemic. He was noted on the lower chest to have bronchiectatic changes and a nodule 5 mm in the right base and left lower lobe 6 mm nodule. Patient is a non-smoker. There is no history of occupational exposure to chemicals or fumes. Patient underwent a laparoscopic appendectomy on December 30 without complications. Patient denies any shortness of breath, cough, or hemoptysis. Of note is that the patient underwent a CT scan of the chest that revealed bibasilar atelectatic changes. Nodules were not appreciated. PAST MEDICAL HISTORY: Unremarkable. CURRENT MEDICATIONS: Include piperacillin, Tylenol, Toradol. REVIEW OF SYSTEMS: No orthopnea, no PND, no chest pain, no palpitations, discomfort, no nausea, no vomiting, no lower extremity edema. PHYSICAL EXAMINATION: General: On physical examination, patient is a well-developed, well-nourished male awake, alert, in no acute distress. Vitals: He is afebrile. Blood pressure 125/53, respiratory rate is 18, O2 saturation is 98% on room air. HEENT: Normocephalic, atraumatic. Neck: Supple. Heart: Regular with S1, S2. Chest: Clear. Abdomen: Soft, bowel sounds are positive. Mild incisional tenderness right lower quadrant. Extremities: No cyanosis or edema. LABORATORY STUDIES: BUN 10, creatinine 1.1. WBC 7.1, hemoglobin 14.1, hematocrit 41.8 with a platelet count 178,000. Chest CT: Small bibasilar atelectatic changes. IMPRESSION: 1. Abdominal pain, status post laparoscopic appendectomy. 2. Bilateral pulmonary nodules. 3. Bibasilar atelectasis. PLAN: Obtain follow up low-dose chest CT in 6 months, incentive spirometer, discharge as per Surgery. Will follow the patient outpatient. CORNELIA RATLIFF M.D. LUIS ENRIQUE/[id number] MTDD
[2018-12-31 13:59] VITALS: BP 119/68; PULSE 78; TEMP 97.9
--- NOTE | 2019-01-03 17:06 | PATH ---
Surgical Pathology Report Patient Name: LACIE WEBB [facility]. Rec. #: [id number] /Age/Gender: 1975 (Age: 43) / M Account: [id number] Location: [address] [place] [address]/[facility] Taken: 12/30/2018 Received: 01/02/2019 Reported: 01/03/2019 Physicians: Mik Lovelace MD Specimen(s) Received APPENDIX Clinical History Acute appendicitis Final Diagnosis APPENDIX, LAPAROSCOPIC APPENDECTOMY: ACUTE APPENDICITIS AND PERIAPPENDICITIS. Electronically Signed Anita Patel M.D. Gross Description Received in formalin, labeled "appendix," is a 6 x 2 x 1 cm. in length vermiform appendix with a stapled margin of resection and moderate attached fat. The serosa is pink-connelly. Sectioning reveals a 0.2 lumen with focal hemorrhage. The wall of the appendix averages 0.2 cm. in thickness. Entire submitted in 3 cassettes (3- surgical margin, inked blue). MLSZ/01/02/2019 sanml/01/02/2019
== END 2018-12-31 14:18 | disposition home or self-care (01) | DRG 342 ==
LOC: JER 21:17 → JERBED 12-30 01:55 → J5S 12-30 03:52
PROVIDERS: ADMIT Internal Medicine; ATTEND Nurse Practitioner Family
PROC: 0DTJ4ZZ Resection of Appendix, Percutaneous Endoscopic Approach (ICD-10-PCS; principal; 2018-12-30 10:30)
DX: K35.80 Unspecified acute appendicitis (principal); J98.11 Atelectasis; R91.1 Solitary pulmonary nodule
CPT/HCPCS: 36415; 71250-TC; 74177-TC; 80053; 81003; 83735; 85025; 85610; 85730; 86480; 86850; 86900; 86901; 87086; 87899; 88304-TC; 94760; 99285-25; J0131; J7030